=== PATIENT | male | born 1995 | race Caucasian/White ===

== ENCOUNTER 2024-07-18 06:12 | Day surgery (SDC) | payer BC, SELFPAY ==
[2024-07-18] VITALS (9 sets, daily range): BP systolic 123–147; BP diastolic 74–88; BMI 39.6
[2024-07-18] MEDS: NORMOSOL-R/PLASMALYTE-A 1000 IV (06:31)
[2024-07-18] MEDS: TRANSDERM-SCOP 1 PATCH TRANSDERM (07:15)
== END 2024-07-18 10:15 | disposition home or self-care (01) ==
LOC: SDS 06:12
PROVIDERS: ATTENDING PHYSICIAN Otolaryngology
DX: J34.2 Deviated nasal septum (principal); J34.3 Hypertrophy of nasal turbinates
CPT/HCPCS: 30520; 30802

== ENCOUNTER → 2025-01-02 11:04 | Outpatient (REF) | payer BC, SELFPAY | LOC: HWRAD 11:04 | PROVIDERS: ATTENDING PHYSICIAN Nurse Practitioner Family | DX: M54.42 Lumbago with sciatica, left side (principal) | CPT/HCPCS: 72110 ==